=== PATIENT | female | born 1990 | race Two or more races ===

== ENCOUNTER 2020-05-01 08:00 | Observation (INO) | payer MEDICAID | END 2020-05-01 09:45 | disposition home or self-care (01) | LOC: LDRP 08:00 | PROVIDERS: ADMIT Obstetrics & Gynecology; ATTEND Obstetrics & Gynecology | DX: O10.913 Unspecified pre-existing hypertension complicating pregnancy, third trimester (principal); Z3A.28 28 weeks gestation of pregnancy | CPT/HCPCS: 59025; 76818; 81002; G0378 ==

== ENCOUNTER 2020-05-08 08:26 | Observation (INO) | payer MEDICAID ==
[2020-05-08] MEDS ORDERED: PREN-96 PO (09:43)
[2020-05-08] MEDS ORDERED: LABE100T4 PO (09:43)
== END 2020-05-08 10:20 | disposition home or self-care (01) ==
LOC: LDRP 08:26
PROVIDERS: ADMIT Specialist; ATTEND Specialist
DX: O13.3 Gestational [pregnancy-induced] hypertension without significant proteinuria, third trimester (principal); Z3A.29 29 weeks gestation of pregnancy
CPT/HCPCS: 59025; 76818; 81002; G0378

== ENCOUNTER 2020-05-15 09:14 | Observation (INO) | payer MEDICAID ==
[~2020-05-15 09:14] MED LIST: LABE100T4 PO; PREN-96 PO
== END 2020-05-15 10:25 | disposition home or self-care (01) ==
LOC: LDRP 09:14
PROVIDERS: ADMIT Obstetrics & Gynecology; ATTEND Obstetrics & Gynecology
DX: O10.913 Unspecified pre-existing hypertension complicating pregnancy, third trimester (principal); Z3A.30 30 weeks gestation of pregnancy; Z98.84 Bariatric surgery status; Z79.899 Other long term (current) drug therapy
CPT/HCPCS: 59025; 76818; 81002; G0378

== ENCOUNTER 2020-05-22 09:23 | Observation (INO) | payer MEDICAID | END 2020-05-22 10:53 | disposition home or self-care (01) | LOC: LDRP 09:23 | PROVIDERS: ADMIT Obstetrics & Gynecology; ATTEND Obstetrics & Gynecology | DX: O10.913 Unspecified pre-existing hypertension complicating pregnancy, third trimester (principal); O24.419 Gestational diabetes mellitus in pregnancy, unspecified control; Z91.19 Patient's noncompliance with other medical treatment and regimen; Z3A.31 31 weeks gestation of pregnancy; Z98.84 Bariatric surgery status; Z79.899 Other long term (current) drug therapy | CPT/HCPCS: 59025; 76818; 81002; 82948; 82962; G0378 ==

== ENCOUNTER 2020-05-30 10:49 | Observation (INO) | payer MEDICAID ==
[~2020-05-30] VITALS: Ht 162.6 cm; Wt 117.9 kg
[2020-05-30 12:10] LABS: Basophils # (auto) 0 10 ^3/uL (0-0.2); Basophils % (auto) 0.3 % (0.0-2.0); Eosinophils # (auto) 0.1 10 ^3/uL (0-0.8); Neutrophils # (auto) 5.1 10 ^3/uL (1.6-8.6); Nucleated Red Blood Cells % 0.1 %; Red Cell Distribution Width 14.2 % (11.8-14.3); White Blood Cell 7.1 10^3/uL (4.4-10.8)
[2020-05-30 12:12] LABS: Eosinophils % (auto) 0.7 % (0.0-7.0); Hematocrit 29.2 % (36.0-46.0); Hemoglobin 9.8 g/dL (12.2-16.2); Lymphocytes # (auto) 1.4 10 ^3/uL (0.4-5.4); Lymphocytes % (auto) 20.4 % (10.0-50.0); Mean Corpuscular Hemoglobin 25.5 pg (28.0-32.0); Mean Corpuscular Hgb Conc. 33.4 g/dL (32.0-36.0); Mean Corpuscular Volume 76.2 fL (80.0-100.0); Monocytes # (auto) 0.5 10 ^3/uL (0-1.3); Monocytes % (auto) 6.4 % (0.0-12.0); Neutrophils % (auto) 72.2 % (37.0-80.0); Platelet Count (auto) 287 10^3/uL (140-450); Red Blood Cells 3.84 10^6/uL (4.0-5.20)
[2020-05-30 12:22] LABS: Albumin 2.4 g/dL (3.4-5.0); Calcium 8.7 mg/dL (8.5-10.1)
[2020-05-30 12:25] LABS: BUN/Creatinine Ratio 29.2; Bilirubin, Total 0.2 mg/dL (0.2-1.0); Uric Acid 4.6 mg/dL (2.6-6.0)
[2020-05-30 12:32] LABS: INR 0.94 (0.9-1.15); Partial Thromboplastin Time 24.8 sec (23.0-31.2)
[2020-05-30] MEDS ORDERED: LABE300T3 PO (12:55)
== END 2020-05-30 13:42 | disposition home or self-care (01) ==
LOC: LDRP 10:49
PROVIDERS: ADMIT Obstetrics & Gynecology; ATTEND Obstetrics & Gynecology
DX: O16.3 Unspecified maternal hypertension, third trimester (principal); Z3A.32 32 weeks gestation of pregnancy; O12.03 Gestational edema, third trimester; Z91.19 Patient's noncompliance with other medical treatment and regimen
CPT/HCPCS: 36415; 59025; 76818; 80053; 81002; 84550; 85025; 85379; 85610; 85730; G0378

== ENCOUNTER 2020-06-01 10:00 | Observation (INO) | payer MEDICAID ==
[~2020-06-01 10:00] MED LIST changes: -LABE100T4 PO; +LABE300T3 PO
[2020-06-01] MEDS ORDERED: FERR-7 PO (11:52)
== END 2020-06-01 11:40 | disposition home or self-care (01) ==
LOC: LDRP 10:00
PROVIDERS: ADMIT Obstetrics & Gynecology; ATTEND Obstetrics & Gynecology
DX: O16.3 Unspecified maternal hypertension, third trimester (principal); Z3A.32 32 weeks gestation of pregnancy
CPT/HCPCS: 59025; 76818; 81002; G0378

== ENCOUNTER 2020-06-06 11:42 | Outpatient (CLI) | payer MEDICAID ==
[~2020-06-06] VITALS: Ht 134.6 cm; Wt 113.4 kg
[~2020-06-06 11:42] MED LIST changes: +FERR-7 PO
[2020-06-06 13:14] LABS: 24 Hr. Total Protein, Urine 123.9 mg/24 Hr (<149.1); Protein, Urine 11.8 mg/dL (0.0-11.9)
== END 2020-06-06 12:42 | disposition home or self-care (01) ==
LOC: OB 11:42 → UNDODISOB 12:42 → OB 06-14 11:42 → EDSTATUS 06-14 13:39
PROVIDERS: ATTEND Obstetrics & Gynecology
DX: O16.3 Unspecified maternal hypertension, third trimester (principal); Z3A.33 33 weeks gestation of pregnancy
CPT/HCPCS: 76818; 84156; G0378

== ENCOUNTER 2020-06-18 11:26 | Observation (INO) | payer MEDICAID | END 2020-06-18 13:10 | disposition home or self-care (01) | LOC: LDRP 11:26 | PROVIDERS: ADMIT Obstetrics & Gynecology; ATTEND Obstetrics & Gynecology | DX: O10.013 Pre-existing essential hypertension complicating pregnancy, third trimester (principal); Z3A.35 35 weeks gestation of pregnancy | CPT/HCPCS: 59025; 76818; 81002; G0378 ==